=== PATIENT | female | born 1995 | race Caucasian/White ===

== ENCOUNTER 2023-07-18 18:35 | Emergency (ER) | payer OTHER ==
[~2023-07-18] VITALS: Ht 162.6 cm; Wt 56.7 kg
[2023-07-18 18:50] VITALS: BP 153/103
== END 2023-07-18 18:50 | disposition home or self-care (01) ==
LOC: ED 18:35
DX: S63.612A Unspecified sprain of right middle finger, initial encounter (principal); X58.XXXA Exposure to other specified factors, initial encounter
CPT/HCPCS: 99283